=== PATIENT | female | born 1950 | race Caucasian/White ===

== ENCOUNTER 2020-12-02 21:11 | Inpatient (IN) | payer MEDICARE, OTHER ==
[~2020-12-02] VITALS: Ht 165 cm; Wt 115.4 kg
[~2020-12-02 21:11] MED LIST: ACETAMINOPHEN325 M2 PO; ACTOS30 MG PO; ALLOPURINOL100 MG PO; ASPIRIN CHEWABL81 MG PO; ATIVAN1 MG PO; BISCOLAX10 MG PR; CELEXA20 MG PO; DEPAKOTE250 MG PO; FIBER LAXATIVE625 MG PO; GABAPENTIN800 MG PO; INDERAL20 MG PO; LASIX20 MG PO; LOTRISONE CREAM15 GM TOP; METFORMIN HCL500 MG PO; MILK OF MA400 MG/5 M PO; NAMZARIC; NEURONTIN300 MG PO; NIZORAL CREAM 330 GM TOP; UROCIT-K10 MEQ PO; XALATAN2.5 ML EYEBOTH; ZESTRIL2.5 MG PO
[2020-12-02 22:01] LABS: BASOPHIL 0.4 % (0-2); EOSINOPHIL 0.9 % (0-7); HCT 49.5 % (37.0-47.0); HGB 14.7 g/dl (12.5-16.0); MCH 28.2 pg (25.0-31.0); MCHC 29.7 g/dL (32.0-36.0); MONOCYTE 9.8 % (0-12); MPV 11.7 fL (6.0-9.5); NEUTROPHIL 74.3 % (41-80); NRBC 0; PLT 179 K/uL (150-400); RBC 5.21 M/uL (4.20-5.40); RDW 18.9 % (11.5-14.0); WBC 14.3 K/uL (4.0-10.5)
[2020-12-02 22:49] LABS: INR 1.17 (0.9-1.2); PROTHROMBIN TIME 14.3 SECONDS (11.8-13.4); PTT 22.3 SECONDS (24.4-34.7)
[2020-12-02 23:02] LABS: LACTIC ACID 4.7 mmol/L (0.4-1.9)
[2020-12-02 23:03] LABS: PRO-BNP 322 pg/mL (<125)
[2020-12-02 23:34] LABS: BILIRUBIN NEGATIVE (NEGATIVE); BLOOD TRACE-INTACT Ery/uL (NEGATIVE); CLARITY HAZY (CLEAR); COLOR YELLOW (YELLOW); GLUCOSE (U) 3+ mg/dL (NORMAL); LEUKOCYTES 1+ Leu/uL (NEGATIVE); NITRITE POSITIVE (NEGATIVE); PROTEIN NEGATIVE (NEGATIVE); SPECIFIC GRAVITY 1.015 (1.001-1.030); UROBILINOGEN 0.2 mg/dL (0.2-1.0)
[2020-12-02 23:41] LABS: BACTERIA 3+; SQUAMOUS EPITHELIAL CELLS 20-50; URINARY WBC TNTC
[2020-12-03 02:47] LABS: DEPAKENE/VALPROIC ACID 93.5 ug/mL (50.0-100.0)
[2020-12-03 02:48] LABS: BUN 99 mg/dL (7-18); CREATININE 1.74 mg/dL (0.51-0.95); GLUCOSE 484 mg/dL (74-106)
[2020-12-03 02:49] LABS: ALBUMIN 2.4 g/dL (3.4-5.0); ALKALINE PHOSHATASE 91 U/L (46-116); AST 25 U/L (15-37); BILIRUBIN - TOTAL 0.4 mg/dL (0.2-1.0); GLOBULIN (CALCULATION) 5.3 g/dL; TOTAL PROTEIN 7.7 g/dL (6.4-8.2)
[2020-12-03 02:50] LABS: ALT 18 U/L (14-59); C-REACTIVE PROTEIN >18.00 mg/dL (<=0.90); CO2 (BICARBONATE) 27 mmol/L (21-32); LDH 237 U/L (81-234); MAGNESIUM 3.1 mg/dL (1.8-2.4)
[2020-12-03 02:58] LABS: POTASSIUM 3.2 mmol/L (3.5-5.1)
[2020-12-03 03:02] LABS: CHLORIDE 197 mmol/L (98-107)
[2020-12-03 06:56] LABS: CREATININE 1.43 mg/dL (0.51-0.95); MAGNESIUM 2.8 mg/dL (1.8-2.4); PHOSPHORUS 3.4 mg/dL (2.6-4.7); POTASSIUM 3.7 mmol/L (3.5-5.1)
[2020-12-03] MEDS ORDERED: DEPAKOTE SPRIN125 M2 PO (16:18)
[2020-12-03] MEDS ORDERED: ATIVAN1 MG PO (16:21)
[2020-12-03] MEDS ORDERED: CLARITIN10 MG PO (16:22)
[2020-12-03] MEDS ORDERED: SALINE NASAL SP88 M1 (16:25)
[2020-12-03] MEDS ORDERED: TRAMADOL HCL50 MG PO (16:26)
[2020-12-04 08:37] LABS: CREATININE 1.08 mg/dL (0.51-0.95); POTASSIUM 3.2 mmol/L (3.5-5.1)
[2020-12-04 08:51] LABS: BASOPHIL 0.3 % (0-2); EOSINOPHIL 0 % (0-7); HCT 44.1 % (37.0-47.0); HGB 12.4 g/dl (12.5-16.0); LYMPHOCYTE 9.5 % (15-48); MCH 27.8 pg (25.0-31.0); MCHC 28.1 g/dL (32.0-36.0); MCV 98.9 fL (78.0-100.0); MONOCYTE 5.3 % (0-12); MPV 11.7 fL (6.0-9.5); NRBC 0.2; PLT 173 K/uL (150-400); RBC 4.46 M/uL (4.20-5.40); RDW 18.1 % (11.5-14.0); WBC 12.8 K/uL (4.0-10.5)
--- NOTE | 2020-12-04 15:18 | NUR ---
12/04/20 Ms. Dee was admitted from [facility]. Emerald Ferguson reports that [place] will accept back. A new COVID test will be required if patient returns after 72 hours of admission.
[2020-12-05 06:05] LABS: BASOPHIL 0.2 % (0-2); EOSINOPHIL 2.7 % (0-7); HCT 40.6 % (37.0-47.0); HGB 11.6 g/dl (12.5-16.0); LYMPHOCYTE 35.8 % (15-48); MCHC 28.6 g/dL (32.0-36.0); MCV 98.1 fL (78.0-100.0); MONOCYTE 6.9 % (0-12); MPV 11.1 fL (6.0-9.5); NEUTROPHIL 53.9 % (41-80); NRBC 0; PLT 163 K/uL (150-400); RBC 4.14 M/uL (4.20-5.40); WBC 8.1 K/uL (4.0-10.5)
[2020-12-05 06:10] LABS: CREATININE 0.77 mg/dL (0.51-0.95)
[2020-12-06 05:25] LABS: BASOPHIL 0.2 % (0-2); EOSINOPHIL 3.2 % (0-7); HCT 36.9 % (37.0-47.0); HGB 10.9 g/dl (12.5-16.0); LYMPHOCYTE 26.6 % (15-48); MCH 28.1 pg (25.0-31.0); MCHC 29.5 g/dL (32.0-36.0); MCV 95.1 fL (78.0-100.0); MONOCYTE 8.9 % (0-12); NEUTROPHIL 60.6 % (41-80); NRBC 0; PLT 130 K/uL (150-400); RBC 3.88 M/uL (4.20-5.40); RDW 17.3 % (11.5-14.0); WBC 8.7 K/uL (4.0-10.5)
[2020-12-06 05:43] LABS: POTASSIUM 3.1 mmol/L (3.5-5.1)
--- NOTE | 2020-12-07 15:00 | NUR ---
1500 IV SITE HAS INFILTRATED AND HAS BEEN REMOVED. THIS NURSE ATTEMPTED TO RESTART IV X 3 WITHOUT ANY SUCCESS. HOUSE SUPERVISIOR WAS NOTIFED AND TWO FLOAT NURSES ATTEMPTED TO RESTART ALSO WITHOUT ANY SUCCESS. 1530 DR. WHITLEY WAS NOTIFED THAT THEY WAS NO IV SITE AND AFTER MANY ATTEMPTS TO GET A SITE WITHOUT SUCCESS. DR. WHITLEY REPORTS THAT HE WILL NEED TO PLACE A CENTRAL LINE. 1600 AWAITNG THE CENTRAL LINE TO BE PLACED BY DR. WHITLEY TO GIVE HER ANTIBOTICS.
--- NOTE | 2020-12-07 17:57 | NUR ---
1748 [facility] [facility] PATIENT DAUGHTER WAS NOTIFED THAT WE WHERE UNABLE TO GET THE IV SITE RESTART. DR. WHITLEY SAY SHE NEEDS TO HAVE A CENTRAL LINE PLACE. MAIN [facility] GAVE PERMISSION TO THIS NURSE AND IT WAS VERFIED BY NEPTALI BRONSON RN.
--- NOTE | 2020-12-07 18:28 | NUR ---
182 DR. WHITLEY ATTEMPTING A CENTRAL LINE AND A TIMEOUT WAS DONE BEFORE THE PROCEDURE WAS STARTED.
[2020-12-08 08:33] LABS: BASOPHIL 0.2 % (0-2); HCT 38.5 % (37.0-47.0); HGB 11.8 g/dl (12.5-16.0); LYMPHOCYTE 26.1 % (15-48); MCHC 30.6 g/dL (32.0-36.0); MCV 91.2 fL (78.0-100.0); MONOCYTE 7.7 % (0-12); MPV 10.6 fL (6.0-9.5); NEUTROPHIL 61.5 % (41-80); NRBC 0; PLT 158 K/uL (150-400); RBC 4.22 M/uL (4.20-5.40); RDW 17.8 % (11.5-14.0); WBC 9.4 K/uL (4.0-10.5)
[2020-12-08 09:15] LABS: BUN/CREAT RATIO (CALC) 10.6 RATIO; CREATININE 1.42 mg/dL (0.51-0.95); POTASSIUM 3.1 mmol/L (3.5-5.1)
--- NOTE | 2020-12-09 00:57 | NUR ---
AT FIRST ROUND SYSTEM REMAINED UNDER DAYSHIFT NURSES LOGIN BY MISTAKE. THEREFORE, INITIAL ENTRIES FOR THIS SHIFT (12/08 @1900ISH) BY RB NOT MDC2.
[2020-12-09 07:26] LABS: BASOPHIL 0.2 % (0-2); EOSINOPHIL 4.8 % (0-7); HCT 34.4 % (37.0-47.0); HGB 10.6 g/dl (12.5-16.0); LYMPHOCYTE 29.9 % (15-48); MCH 28.4 pg (25.0-31.0); MCHC 30.8 g/dL (32.0-36.0); MCV 92.2 fL (78.0-100.0); MONOCYTE 8.4 % (0-12); MPV 10.7 fL (6.0-9.5); NEUTROPHIL 56.2 % (41-80); NRBC 0; PLT 188 K/uL (150-400); RBC 3.73 M/uL (4.20-5.40); RDW 18.1 % (11.5-14.0); WBC 8.6 K/uL (4.0-10.5)
[2020-12-09 07:51] LABS: BUN/CREAT RATIO (CALC) 10.9 RATIO; CREATININE 1.37 mg/dL (0.51-0.95); POTASSIUM 3.3 mmol/L (3.5-5.1)
[2020-12-11 04:55] LABS: BUN/CREAT RATIO (CALC) 9.6 RATIO; CREATININE 1.46 mg/dL (0.51-0.95); POTASSIUM 3.4 mmol/L (3.5-5.1)
[2020-12-11] MEDS ORDERED: FUROSEMIDE 20MG20 MG PO (08:10)
[2020-12-11] MEDS ORDERED: SILVASORB44.4 ML TOP (08:10)
[2020-12-11] MEDS ORDERED: HUMULIN R100 UNIT/1 SC (08:12)
[2020-12-11] MEDS ORDERED: LANTUS **100 UNITS/ SC (08:12)
[2020-12-11] MEDS ORDERED: LOPRESSOR25 MG PO (16:16)
--- NOTE | 2020-12-11 16:20 | NUR ---
SPOKE WITH MAIN [facility]DERR[facility] AND INFORMED OF PATIENT GOING BACK TO [place], ASSESSED CENTRAL LINE SITE AND DRESSING INTACT, CLEAN, DRY WITHOUT BLEEDING
== END 2020-12-11 19:12 | DRG 871 ==
LOC: FER 21:11 → FTCU 12-03 03:44 → FER 12-03 14:08 → FMS 12-06 14:26
PROVIDERS: Allergy & Immunology Allergy; Emergency Medicine; Nurse Practitioner; ADMIT Internal Medicine
PROC: 02HV33Z Insertion of Infusion Device into Superior Vena Cava, Percutaneous Approach (ICD-10-PCS; principal; 2020-12-07)
PROC: B548ZZA Ultrasonography of Superior Vena Cava, Guidance (ICD-10-PCS; 2020-12-07)
DX: A41.9 Sepsis, unspecified organism (principal); L89.313 Pressure ulcer of right buttock, stage 3; J18.9 Pneumonia, unspecified organism; J96.01 Acute respiratory failure with hypoxia; N17.9 Acute kidney failure, unspecified; E87.0 Hyperosmolality and hypernatremia; J98.11 Atelectasis; N39.0 Urinary tract infection, site not specified; Z20.822 Contact with and (suspected) exposure to COVID-19; R65.20 Severe sepsis without septic shock; E66.01 Morbid (severe) obesity due to excess calories; G40.909 Epilepsy, unspecified, not intractable, without status epilepticus; I10 Essential (primary) hypertension; E87.70 Fluid overload, unspecified; E11.22 Type 2 diabetes mellitus with diabetic chronic kidney disease; N18.9 Chronic kidney disease, unspecified; M10.9 Gout, unspecified; E86.0 Dehydration; L89.326 Pressure-induced deep tissue damage of left buttock; F32.9 Major depressive disorder, single episode, unspecified; B96.20 Unspecified Escherichia coli [E. coli] as the cause of diseases classified elsewhere; Z68.39 Body mass index [BMI] 39.0-39.9, adult; Z87.820 Personal history of traumatic brain injury; Z79.82 Long term (current) use of aspirin; Z79.84 Long term (current) use of oral hypoglycemic drugs; Z79.899 Other long term (current) drug therapy; Y95 Nosocomial condition
CPT/HCPCS: 36415; 36600; 71045; 71250; 80048; 80053; 80164; 80202; 81001; 82009; 82728; 82803; 82962; 83605; 83615; 83735; 83880; 84100; 84145; 84484; 85025; 85610; 85730; 86140; 87040; 87077; 87088; 87186; 93005; 94010; 94640; 96365; 96367; 96372; 96375; J1650; J1940; J2543; J2930; J3370; J7030; J7040; J7050; J7070; U0002

== ENCOUNTER 2021-01-08 08:25 | Inpatient (IN) | payer MEDICARE, OTHER ==
[~2021-01-08] VITALS: Ht 162.6 cm; Wt 100.4 kg
[~2021-01-08 08:25] MED LIST changes: +CIPRO500 MG PO; +CLARITIN10 MG PO; +DEPAKOTE SPRIN125 M2 PO; +FUROSEMIDE 20MG20 MG PO; +HUMULIN R100 UNIT/1 SC; +LANTUS **100 UNITS/ SC; +LOPRESSOR25 MG PO; +SALINE NASAL SP88 M1; +SILVASORB44.4 ML TOP; +TRAMADOL HCL50 MG PO
[2021-01-08 09:10] LABS: BASOPHIL 0.8 % (0-2); EOSINOPHIL 1.9 % (0-7); HCT 46.7 % (37.0-47.0); HGB 13.5 g/dl (12.5-16.0); MCH 28.5 pg (25.0-31.0); MCHC 28.9 g/dL (32.0-36.0); MONOCYTE 10.1 % (0-12); MPV 9.3 fL (6.0-9.5); NEUTROPHIL 71.8 % (41-80); NRBC 0; PLT 269 K/uL (150-400); RBC 4.73 M/uL (4.20-5.40); WBC 18.5 K/uL (4.0-10.5)
[2021-01-08 09:18] LABS: INR 1.15 (0.9-1.2); PROTHROMBIN TIME 14.1 SECONDS (11.8-13.4)
[2021-01-08 09:26] LABS: IRON % SATURATION 20.3 %SAT (20-50)
[2021-01-08 09:31] LABS: LACTIC ACID 2.2 mmol/L (0.4-1.9)
[2021-01-08 09:36] LABS: ALBUMIN 2.2 g/dL (3.4-5.0); BILIRUBIN - TOTAL 0.3 mg/dL (0.2-1.0); BUN/CREAT RATIO (CALC) 27.1 RATIO; CREATININE 1.33 mg/dL (0.51-0.95); GLOBULIN (CALCULATION) 4.6 g/dL; MAGNESIUM 2.9 mg/dL (1.8-2.4); MCV 98.7 fL (78.0-100.0); POTASSIUM 4.5 mmol/L (3.5-5.1); TOTAL PROTEIN 6.8 g/dL (6.4-8.2)
[2021-01-08 09:40] LABS: PRO-BNP 847 pg/mL (<125)
[2021-01-08 09:43] LABS: BILIRUBIN NEGATIVE (NEGATIVE); BLOOD 3+ Ery/uL (NEGATIVE); CLARITY CLOUDY (CLEAR); COLOR YELLOW (YELLOW); GLUCOSE (U) NORMAL (NORMAL); LEUKOCYTES 3+ Leu/uL (NEGATIVE); NITRITE POSITIVE (NEGATIVE); PROTEIN 3+ mg/dL (NEGATIVE); SPECIFIC GRAVITY 1.025 (1.001-1.030); pH 6.5 (5.0-9.0)
[2021-01-08 09:50] LABS: BACTERIA 1+; URINARY WBC TNTC
[2021-01-08 09:51] LABS: MUCOUS TRACE
[2021-01-08 15:31] LABS: BUN/CREAT RATIO (CALC) 29.3 RATIO; CREATININE 1.16 mg/dL (0.51-0.95); MAGNESIUM 2.8 mg/dL (1.8-2.4); POTASSIUM 4.3 mmol/L (3.5-5.1)
[2021-01-08] MEDS ORDERED: LASIX20 MG PO (19:35)
[2021-01-08] MEDS ORDERED: LANTUS **100 UNITS/ SC (19:37)
[2021-01-08] MEDS ORDERED: HUMULIN R100 UNIT/1 SC (19:38)
[2021-01-08] MEDS ORDERED: CIPRO500 MG PO (19:39)
[2021-01-09 10:55] LABS: BASOPHIL 0.5 % (0-2); EOSINOPHIL 3.5 % (0-7); HCT 34.4 % (37.0-47.0); HGB 10.2 g/dl (12.5-16.0); LYMPHOCYTE 17.4 % (15-48); MCHC 29.7 g/dL (32.0-36.0); MCV 97.7 fL (78.0-100.0); MONOCYTE 8.4 % (0-12); MPV 9.9 fL (6.0-9.5); NEUTROPHIL 67.9 % (41-80); NRBC 0; PLT 224 K/uL (150-400); RBC 3.52 M/uL (4.20-5.40); RDW 20.3 % (11.5-14.0); WBC 13.3 K/uL (4.0-10.5)
[2021-01-09 11:31] LABS: BUN/CREAT RATIO (CALC) 27.8 RATIO; CREATININE 1.15 mg/dL (0.51-0.95); PHOSPHORUS 2.4 mg/dL (2.6-4.7)
[2021-01-09 11:32] LABS: MAGNESIUM 2.2 mg/dL (1.8-2.4)
--- NOTE | 2021-01-09 17:08 | NUR ---
01/09/21 [place] will accept back per Emerald Ferguson. A new COVID test is not required if patient is discharged by 01/10.
[2021-01-10 06:32] LABS: BASOPHIL 0.8 % (0-2); EOSINOPHIL 3.9 % (0-7); HCT 36.1 % (37.0-47.0); HGB 10.5 g/dl (12.5-16.0); MCH 28.8 pg (25.0-31.0); MCHC 29.1 g/dL (32.0-36.0); MCV 99.2 fL (78.0-100.0); MONOCYTE 7.1 % (0-12); MPV 10.9 fL (6.0-9.5); NEUTROPHIL 60.2 % (41-80); NRBC 0; PLT 186 K/uL (150-400); RBC 3.64 M/uL (4.20-5.40); RDW 19.7 % (11.5-14.0); WBC 12.5 K/uL (4.0-10.5)
[2021-01-10 06:50] LABS: BUN/CREAT RATIO (CALC) 23.7 RATIO; CREATININE 0.93 mg/dL (0.51-0.95); POTASSIUM 5.1 mmol/L (3.5-5.1)
[2021-01-11 07:47] LABS: BASOPHIL 0.6 % (0-2); HCT 31.2 % (37.0-47.0); HGB 9.8 g/dl (12.5-16.0); LYMPHOCYTE 20.2 % (15-48); MCH 29.3 pg (25.0-31.0); MCHC 31.4 g/dL (32.0-36.0); MONOCYTE 6.2 % (0-12); MPV 9.8 fL (6.0-9.5); NEUTROPHIL 66.2 % (41-80); NRBC 0; PLT 264 K/uL (150-400); RBC 3.34 M/uL (4.20-5.40); RDW 18.6 % (11.5-14.0)
[2021-01-11 07:52] LABS: MCV 93.4 fL (78.0-100.0)
[2021-01-11 08:13] LABS: CREATININE 0.84 mg/dL (0.51-0.95); POTASSIUM 3.9 mmol/L (3.5-5.1)
[2021-01-11] MEDS ORDERED: AUGMENTIN 875-1 EACH PO (14:26)
--- NOTE | 2021-01-11 18:11 | NUR ---
2744--EMS HERE TO TRANSFER PATIENT TO [facility]. IV REMOVED. REPORT CALLED, PAPERWORK SENT WITH EMS. D/C SUMMARY FAXED TO [facility]
== END 2021-01-11 18:06 | DRG 698 ==
LOC: FER 08:25 → FMS 10:12
PROVIDERS: Emergency Medicine; ADMIT Internal Medicine
DX: T83.518A Infection and inflammatory reaction due to other urinary catheter, initial encounter (principal); A41.9 Sepsis, unspecified organism; L89.323 Pressure ulcer of left buttock, stage 3; L89.313 Pressure ulcer of right buttock, stage 3; G93.41 Metabolic encephalopathy; R65.20 Severe sepsis without septic shock; E87.2 Acidosis; N17.9 Acute kidney failure, unspecified; N30.00 Acute cystitis without hematuria; E87.0 Hyperosmolality and hypernatremia; Z20.822 Contact with and (suspected) exposure to COVID-19; N18.30 Chronic kidney disease, stage 3 unspecified; F03.90 Unspecified dementia, unspecified severity, without behavioral disturbance, psychotic disturbance, mood disturbance, and anxiety; G40.909 Epilepsy, unspecified, not intractable, without status epilepticus; E66.01 Morbid (severe) obesity due to excess calories; I12.9 Hypertensive chronic kidney disease with stage 1 through stage 4 chronic kidney disease, or unspecified chronic kidney disease; E11.22 Type 2 diabetes mellitus with diabetic chronic kidney disease; M10.9 Gout, unspecified; F32.9 Major depressive disorder, single episode, unspecified; D63.1 Anemia in chronic kidney disease; E86.0 Dehydration; L89.626 Pressure-induced deep tissue damage of left heel; E86.1 Hypovolemia; E11.51 Type 2 diabetes mellitus with diabetic peripheral angiopathy without gangrene; Z87.820 Personal history of traumatic brain injury; Z79.82 Long term (current) use of aspirin; Z79.4 Long term (current) use of insulin; Z79.899 Other long term (current) drug therapy; Z68.39 Body mass index [BMI] 39.0-39.9, adult; Y84.6 Urinary catheterization as the cause of abnormal reaction of the patient, or of later complication, without mention of misadventure at the time of the procedure
CPT/HCPCS: 36415; 70450; 71045; 80048; 80053; 81001; 82607; 82962; 83036; 83540; 83550; 83605; 83735; 83880; 84100; 84145; 84443; 84484; 85025; 85610; 87040; 87076; 87077; 87088; 87186; 93005; 96374; J1335; J1650; J1815; J2543; J7030; J7070; U0002